=== PATIENT | female | born 1990 | race Caucasian/White ===

== ENCOUNTER 2017-08-02 05:45 | Inpatient (IN) ==
[2017-08-02] MEDS ORDERED: Metoclopramide 10 MG/2 ML VIAL IVP PRN (06:27)
[2017-08-02] MEDS ORDERED: *HR* Nalbuphine 10 MG/ML AMPUL IVP PRN (06:27)
[2017-08-02] MEDS ORDERED: miSOPROStol 25 MCG TABLET VG PRN (06:27)
[2017-08-02] MEDS ORDERED: Famotidine 20 MG/2 ML VIAL IVP PRN (06:27)
[2017-08-02] MEDS ORDERED: Naloxone 0.4 MG/ML INJ IVP PRN (06:27)
[2017-08-02] MEDS ORDERED: *HR* Ropivacaine/PF 0.2% 20 ML VIAL EP ONE (06:33)
[2017-08-02] MEDS ORDERED: Bupivacaine-MPF 0.25% 10 ML VIAL EP ONE (06:33)
[2017-08-02] MEDS ORDERED: Ondansetron 4 MG/2 ML VIAL IVP PRN (06:33)
[2017-08-02] MEDS ORDERED: *HR* FentaNYL (PF) 100 MCG/2 ML VIAL EP ONE (06:33)
[2017-08-02] MEDS ORDERED: EPHEDrine 50 MG/ML VIAL IVP PRN (06:33)
[2017-08-02] MEDS ORDERED: Penicillin G Potassium 5,000,000 UNIT in 0.9 % Sodium Chloride Mini Bag 100 ML IVPB ONE (06:41)
[2017-08-02] MEDS ORDERED: Epidural Premix (fent/bupiv) 110 ML EP SCH (06:45)
--- NOTE | 2017-08-02 06:49 | Anesthesia Evaluation PreOp ---
Date of Encounter: 08/02/17 Time of Encounter: 06:44 - Past History Planned Operation: vaginal del, G1 induction Cardiac History: Arrhythmia (hx of bigeminy, ablation in [id number].) Pulmonary History: Denies Any Significant HX DATA MANAGEMENT ASSOCIATE History: Denies Any Significant HX Other Medical History: Denies Any Significant HX Anesthesia History: No Prior Anesthetic Complications, Past Anesthesia Alcohol Use: none Drug use: none Medications and Allergies Tablet 08/02/17 [History] 3 Allergy/AdvReac Type Severity Reaction Status Date / Time No Known Allergies Allergy Verified 08/02/17 06:22 Anesthesia Exam - HEENT Pupil (Motor): Pupils equal Mallampati: II Teeth: Normal Oral Opening: Greater than 3 - DATA MANAGEMENT ASSOCIATE LOC: Oriented DATA MANAGEMENT ASSOCIATE Motor: Normal RUE, Normal LUE, Normal RLE, Normal LLE, Normal Face DATA MANAGEMENT ASSOCIATE Sensory: Normal: RUE, LUE, RLE, LLE, Face - Cardiac Rhythm: Regular Murmur: None - Pulmonary Breath Sounds: bilateral Clear Respiratory Effort: Symmetrical Anesthesia Assess/Plan ASA Score: 2 Modified Jayjay Scale for Level of Consciousness: Cooperative, oriented, and tranquil Anesthetic Plan: General, Regional Monitoring Plan: Standard Monitors Recovery Plan: PACU
[2017-08-02] MEDS: Ringers Solution, Lactated 1,000 ML IVC SCH ×2 (07:00→16:39)
[2017-08-02 07:05] LABS: Basophils % 0.4 %; Eosinophils # 0.1 K/mcL (0.0-0.6); Eosinophils % 0.9 %; Hematocrit 38.5 % (35.3-44.9); Hemoglobin 13.2 g/dL (11.5-15.4); Immature Granulocytes % 0.9 % (0-4); Lymphocytes # 1.6 K/mcL (0.6-4.6); Lymphocytes % 17.4 %; Mean Corpuscular HGB Conc 34.3 g/dL (31.6-35.5); Mean Corpuscular Hemoglobin 31.8 pg (28.0-33.3); Mean Corpuscular Volume 92.8 fL (83.0-100.0); Mean Platelet Volume 10.2 fL (9.4-12.4); Monocytes # 0.6 K/mcL (0.0-1.3); Monocytes % 6.2 %; Neutrophils # 6.7 K/mcL (1.6-8.9); Platelet Count 178 K/mcL (140-400); Red Blood Count 4.15 M/mcL (3.82-4.97); Red Cell Distribution Width 15.3 % (11.5-14.5); Segmented Neutrophils % 74.2 %
[2017-08-02 07:15] LABS: Amphetamine Screen,Urine Negative ng/mL (Cutoff=1000); Barbiturate Screen,Urine Negative ng/mL (Cutoff=200); Benzodiazepines Screen,Urine Negative ng/mL (Cutoff=200); Cannabinoid Screen,Urine Negative ng/mL (Cutoff = 50); Cocaine Screen,Urine Negative ng/mL (Cutoff= 300); Opiate Screen,Urine Negative ng/mL (Cutoff=300); Phencyclidine Screen,Urine Negative ng/mL (Cutoff=25)
--- NOTE | 2017-08-02 07:22 | OB/GYN History & Physical ---
Date of Encounter: 08/02/17 Time of Encounter: 07:20 Assessment and Plan (1) 40 weeks gestation of Current visit: Yes Status: Acute admitted for IOL History of Present Illness Chief complaint: Scheduled IOL at 40 weeks gestation HPI: Ms. Tafoya is a 27 year old female @ 40 weeks gestation presents to labor and delivery for induction of labor. Patient reports contractions started at home around 0500. Patient denies LOF or VB. Patient reports +FM. Blood type: A+ Rubella:Immune Hep B: Nonreactive GBS: Positive per Urine culture early in Past Med Surg Social Fam HX - Past Medical History Source: patient Medical history: SVT (cardiac ablation), other Psychiatric history: no psych history - Social History Smoking Status: Never smoker Smokeless Tobacco Status: No Alcohol use: none Drug use: none Occupational status: employed Current living situation: Home - Independent Activity Level: Independent ambulation Recent Out of Country Travel Within the Last 8 Weeks: No Exposure or Possible Exposure to Illness During Travel: No - Family History Father Living Status: Still Living Hx Family Cardiac Disorders: Yes (HTN, high cholesterol) Obstetrical History - Pregnancies : 1 Para: 0 Term: 0 : 0 Ab's: 0 Livin Medications and Allergies Tablet 08/02/17 [History] 3 Allergy/AdvReac Type Severity Reaction Status Date / Time No Known Allergies Allergy Verified 08/02/17 06:22 Review of System OB - Constitutional Constitutional ROS IM: no chills, no fever(s), no headache(s) - Cardiovascular Cardiovascular: no chest pain, no edema, no palpitations, no syncope - Respiratory Respiratory: no cough - Gastrointestinal Gastrointestinal: no abdominal pain, no constipation, no diarrhea, no heartburn , no nausea, no vomiting - Genitourinary Genitourinary: no abnormal vaginal bleeding, no dysuria, no flank pain, no urinary urgency, no vaginal discharge, no vaginal odor Exam - Constitutional Constitutional: well developed, well nourished, no acute distress, average body habitus - HEENT HEENT: Normocephaly, Mucus Membranes Moist - Neck Neck exam: full ROM, supple - Lungs Respiratory exam: CTAB - Cardiovascular Cardiovascular exam: RRR, +S1, +S2 - Breasts Breast: bilateral: normal - Abdomen Abdomen: Present: bowel sounds normal, gravid, non tender - Extremities Deep Tendon Reflex Grade: 2+ Normal - Cervix Dilation: 1 Effacement: 80 Station: -1 - Uterus Uterus exam: Present: normal size, normal contour - Anus/Rectum Anus/Rectum: Present: normal perianal skin - Comments Comments: FHR 125 bpm moderate amount of variabiity +15x15 accels no decels noted. Cat. 1 tracing. Contraction are irregular. Results Result Diagrams: 08/02/17 06:30 08/02/17 06:00 Abnormal lab results RDW 15.3 % (11.5-14.5) H 08/02/17 06:30 All other labs normal. - VTE Reasons for not Prescribing Prophylaxis: Treatment not Indicated - Low risk for VTE
[2017-08-02 07:49] LABS: Alanine Aminotransferase 22 Units/L (7-52); Aspartate Amino Transferase 20 Units/L (13-39); BUN/Creatinine Ratio 14 (6-26); Blood Urea Nitrogen 8 mg/dL (6-20); Lactate Dehydrogenase 143 Units/L (140-271); Uric Acid 4.7 mg/dL (2.3-7.6); eGFR For African Americans > 60 (> 60); eGFR For Non-African Americans > 60 (> 60)
[2017-08-02] MEDS ORDERED: Penicillin G Potassium 2,500,000 UNIT in 0.9 % Sodium Chloride 100 ML IVPB SCH (08:00)
--- NOTE | 2017-08-02 11:17 | OB Labor Progress Note ---
Date of Encounter: 08/02/17 Time of Encounter: 11:15 Labor Progress Note - Subjective Subjective: Patient resting comfortably. Discussed POC with patient. Patient denies any questions or concerns. - Cervix Cervix: 1/80/-1 - Heart Tones Heart Tones: 135 bpm moderate amount of variability +15x15 accels no decels noted. Cat. 1 tracing - [place]: 2-3 min apart - Interventions Interventions: SVE, darnell catheter placed for IOL. 40 cc sterile water placed in darnell balloon. - Plan Plan: Continue labor management.
[2017-08-02] MEDS ORDERED: Penicillin G Potassium 2,500,000 UNIT in D5% in Water 100 ML IVPB SCH (11:45)
[2017-08-02] MEDS: Penicillin G Potassium 2,500,000 UNIT in 0.9 % Sodium Chloride 100 ML IVPB SCH ×3 (12:05→20:45)
[2017-08-02] MEDS ORDERED: Methylergonovine 0.2 MG/ML AMPUL IM ONE (12:20)
[2017-08-02] MEDS ORDERED: miSOPROStol 100 MCG TABLET PO ONE (12:20)
--- NOTE | 2017-08-02 13:20 | Event Note ---
Date of Encounter: 08/02/17 Time of Encounter: 13:18 Gentle tug to darnell. Darnell taped to patient's leg. Patient denies any needs at this time. Will start Pitocin.
[2017-08-02] MEDS ORDERED: Oxytocin 20 units/ LR 1000 mL 20 UNIT/1,000 ML BAG IVC SCH (13:30)
--- NOTE | 2017-08-02 18:51 | OB Labor Progress Note ---
Date of Encounter: 08/02/17 Time of Encounter: 18:49 Labor Progress Note - Subjective Subjective: Patient sitting up in bed. Discussed POC with patient. Patient denies any questions or concerns. - Cervix Cervix: 4.5/80/-1 - Heart Tones Heart Tones: 125 bpm moderate variability +15x15 accels no decels noted. Cat. 1 tracing - [place]: 2-3 min apart - Interventions Interventions: SVE, AROM moderate amount of clear fluid. IUPC placed without difficulty. Patient tolerated well. - Plan Plan: Continue labor management Patient may have nubain or epidural for pain management if desires
--- NOTE | 2017-08-02 21:31 | OB Labor Progress Note ---
Date of Encounter: 08/02/17 Time of Encounter: 21:29 Labor Progress Note - Subjective Subjective: Patient doing well. Denies any needs at this time. Pitocin at 14 milliunits - Cervix Cervix: 4.5/90/-1 - Heart Tones Heart Tones: 130 bpm moderate variability +15x15 accels no decels noted. Cat. 1 tracing - [place]: 2-2.5 min apart - Interventions Interventions: SVE, repositioned with peanut ball - Plan Plan: Continue labor management.
[2017-08-03] MEDS ORDERED: Epidural Premix (fent/bupiv) 110 ML EP ONE ×3 (00:44→14:01)
--- NOTE | 2017-08-03 01:09 | Anesthesia Procedures ---
Date of Encounter: 08/03/17 Time of Encounter: 01:07 Procedures: Anesthesia - Epidural/Spinal Patient ID/Chart reviewed: Yes Patient examined: Yes OB Eval: Gestational age: term OB Eval: : 1 OB Eval: Hx Para: 0 OB Eval: Dilated at (cm): 5 OB Eval: Contractions: Non-stressed pattern Consent Obtained: Yes Supplemental Oxygen: None/Room Air Site Prep: Aseptic Technique, Sterile prep and drape, Povidone-Iodine 1% Patient position: upright Local Anesthetic: Lidocaine 1% Amount of Local Anesthetic used: 3 Touhy Needle Gauge: 18 Touhy Needle Depth (cm): 9 Catheter Depth at Skin (cm): 20 Test Dose (1.5% Lido + Epi): Volume given (mls): 5 Test Dose Result: Negative Loading Dose: Other: 10mls of epidural pharm bag premix solution Loading Dose Administered: Thru Catheter Infusion Med: 0.125% Bupivacaine w/ 2 mcg/ml Fentanyl Infusion Rate (mls/hr): 14 ([id number]) Catheter Secured in Place: Tegaderm, Tape Interspace Used: L3-L4 Loss of Resistance (DYLAN): Yes Blood: No CSF: No Paresthesia: No Procedure: pt tolerated procedure well. no complications. vss. fhr stable. see nursing notes for full vitals.
[2017-08-03] MEDS: Penicillin G Potassium 2,500,000 UNIT in 0.9 % Sodium Chloride 100 ML IVPB SCH ×5 (01:19→17:13)
--- NOTE | 2017-08-03 06:53 | OB Labor Progress Note ---
Date of Encounter: 08/03/17 Time of Encounter: 06:50 Labor Progress Note - Subjective Subjective: Patient comfortable with epidural in placed. Discussed POC with no cervical change. Pitocin had been turned off during the night and restarted and is currently at 6 milliunits. At this time patient would like to continue with labor management. - Cervix Cervix: 4.5/90/-1 - Heart Tones Heart Tones: 125 bpm moderate variability +15x15 accels no decels noted. Cat. 1 tracing. - [place]: 3-7 min apart - Interventions Interventions: SVE, repositioned - Plan Plan: Continue labor management
--- NOTE | 2017-08-03 09:53 | OB Labor Progress Note ---
Date of Encounter: 08/03/17 Time of Encounter: 09:51 Labor Progress Note - Subjective Subjective: Pt comfortable with epidural. - Heart Tones Heart Tones: Category I - [place]: 2-3 minutes - Interventions Interventions: Pt repositioned to right lateral with peanut ball. IUPC pulled out to 45mm due to contractions not tracing well. - Plan Plan: Continue to monitor and titrate pitocin. Will replace IUPC if continued poor tracing. Anticipate .
--- NOTE | 2017-08-03 16:58 | OB Labor Progress Note ---
Date of Encounter: 08/03/17 Time of Encounter: 16:58 Labor Progress Note - Subjective Subjective: Pt comfortable with epidural. - Cervix Cervix: 4-5/100/0 - Heart Tones Heart Tones: Category I - [place]: 2-2.5 minutes - Plan Plan: SVE at 1254 this afternoon was 4-5/100/0 repeat now is unchanged. Pt has been repositioned several times to multiple positions incluiding on the peanut ball and hands and knees position. POC discussed with pt and father of baby. She has not had significant change since early this am and no change for over 4 hours. There is also a significant amount of caput. At this time I have recommended a delivery for failure to progress. Pt and s/o in agreement. Dr. Vega notified.
[2017-08-03] MEDS ORDERED: CeFAZolin Premix DUPLEX 2,000 MG/50 ML BAG IVPB ONE (17:05)
[2017-08-03] MEDS ORDERED: MetroNIDAZOLE 500 MG/100 ML 500 MG/100 ML BAG IVPB ONE ×2 (17:06→17:33)
[2017-08-03] MEDS ORDERED: *HR* PHENYLEPHRINE 1,000 MCG/10 ML SYRINGE IVP ONE (17:19)
[2017-08-03] MEDS ORDERED: cefOXitin 2,000 MG in Water for inj. (sterile) 10 ML IVP ONE (17:33)
--- NOTE | 2017-08-03 17:33 | OB/GYN Progress Note ---
Date of Encounter: 08/03/17 Time of Encounter: 17:31 - Assessment and Plan (1) Failure to progress in labor Current Visit: Yes Status: Acute Patient has been consented for a primary section. Antibiotics for prophylaxis have been ordered (2) 40 weeks gestation of Current Visit: Yes Status: Acute CNM patient with induction of labor, failure to progress, arrest at 5 cm Subjective - Subjective Principal diagnosis: 40w1d IOL Interval history: The patient has been an induction of labor by CNM's. She has had arrest of dilatation with failure to progress at 5 cm with adequate contractions on Pitocin with IUPC. The patient is being evaluated for a primary for abdominal delivery of the fetus. Antepartum ROS: other Objective - Vital Signs Vital Signs: Intake and Output 08/03/17 08/03/17 08/03/17 07:59 15:59 23:59 Intake Total 200 / 200 200 / 200 Output Total 950 / 950 Balance 200 / 200 -750 / -750 Intake: IV Fluids 200 / 200 200 / 200 Pfizerpen 2,500,000 UNIT In 0.9 200 / 200 200 / 200 % Sodium Chloride 100 ML @ 100 mls/hr IVPB Q4HR [facility] Rx#: [id number] Output: Catheter 950 / 950 - Exam FHR: category 1 Abdomen: Present: soft, gravid Cervical dilation: 5 cm with caput per RN - Labs Labs: Abnormal lab results RDW 15.3 % (11.5-14.5) H 08/02/17 06:30 Creatinine 0.59 mg/dL (0.60-1.20) L 08/02/17 06:00
[2017-08-03] MEDS ORDERED: cefOXitin 2,000 MG in D5% in Water (Mini-Bag+) 100 ML IVPB ONE (17:37)
[2017-08-03] MEDS ORDERED: *HR* Oxytocin 10 UNIT/ML VIAL IM ONE (18:10)
[2017-08-03] MEDS ORDERED: Morphine Sulfate/PF 5mg/10mL Vial ONE (18:11)
[2017-08-03] MEDS ORDERED: Chloroprocaine/PF 20 ML VIAL INFILT ONE (18:11)
[2017-08-03] MEDS ORDERED: cefOXitin 2,000 MG in 0.9 % Sodium Chloride Mini Bag 100 ML IVP ONE (19:00)
[2017-08-03] MEDS ORDERED: *HR* OxyCODONE Immed Rel 5 MG TABLET PO PRN (19:15)
[2017-08-03] MEDS ORDERED: Acetaminophen IV 1,000 MG/100 ML INFUS..BTL IVPB ONE ×2 (19:15→21:30)
--- NOTE | 2017-08-03 19:38 | OB/GYN Procedure Note ---
Section - Date of procedure: 08/03/17 Preop diagnosis: arrest of dilation (5cm) Post-op diagnosis: same Procedure: section, primary low transverse Surgeon: Elayne Vega Estimated blood loss (cc): 400 Was there an school office assistant present: No Chief Deputy: Alex Nam Anesthesia Type: Epidural section complications: uterine atony (Patient given intraoperative Methergine and oral Cytotec 400mcgs) Disposition: L&D Recovery Room Specimens: Placenta, Cord segment - (s) A Infant Delivery Date: 08/03/17 Delivery Time: 18:51 Presentation: vertex Position: LOT Route of delivery: other Gender: Female Viability: Viable Pounds: 8 Ounces: 7 at 1 minute: 8 at 5 minutes: 9 Placenta: spontaneous, uterine exploration Cord: nuchal cord, 3 umbilical vessels, nuchal reduced - Narrative Narrative: Patient was taken to the operating room and prepped and draped in usual sterile fashion. EPCDs were placed. Timeout was completed. Anesthesia was tested to be adequate. A Pfannenstiel skin incision was made with a scalpel and sharply dissected down to the fascia. The fascia was incised in the midline and extended bilaterally with scissors. 2 straight [place] clamps were placed on the inferior fascial edge and the fascia was bluntly and sharply dissected away from the rectus muscles. This was repeated superiorly. The rectus muscles were then bluntly and sharply bissected in the midline. Peritoneum was bluntlyly entered and extended superiorly and inferiorly. Bladder blade was placed to protect the bladder. Vesicouterine peritoneum was incised and reflected inferiorly. Bladder blade was replaced to protect the bladder. A low transverse incision was then made with a scalpel and sharply dissected down to the amnion. This was then bluntly extended bilaterally. The amnion was then bluntly entered. This was followed by the vertex delivery of a vigorous female weighing 8#7oz, with Apgars of 8 at 1 minute and 9 at 5 minutes. The was suctioned on the operating field, cord was clamped and cut after a delay, and the infant was handed to the nursery care team. Placenta was spontaneously extracted intact. Uterine cavity was digitally inspected and then wiped clean with a moist lap sponge. Clamps were placed on the uterine angles and the uterine incision was closed using 0 Vicryl suture in a running locking fashion. A second imbricating layer completed the uterine closure. Good hemostasis was achieved. Gloves were changed. Tubes and ovaries were inspected and found to be grossly normal. The abdomen was irrigated copiously with sterile water. Peritoneal edges and rectus muscles were inspected and hemostasis achieved. The fascia was then closed using an 0 PDS loop in a running, nonlocking fashion. Subcutaneous tissue was irrigated with sterile water and good hemostasis was achieved. She is layer was closed with 3-0 Monocryl in a running nonlocking fashion. Skin was closed with 4-0 Monocryl in a subcuticular fashion. Dermabond was applied for skin closure. All sponge and instrument counts were correct at the end of the procedure. [place] was noted to be draining dark yellow urine at the end of the procedure. The patient was taken to the recovery room in stable condition.
[2017-08-03] MEDS ORDERED: Oxytocin 20 units/ LR 1000 mL 20 UNIT/1,000 ML BAG IVC SCH (20:05)
[2017-08-03] MEDS ORDERED: Simethicone 80 MG TAB.CHEW PO PRN (20:05)
[2017-08-03] MEDS ORDERED: Sennosides 8.6 MG TABLET PO PRN (20:05)
[2017-08-03] MEDS ORDERED: Metoclopramide 10 MG/2 ML VIAL IVP PRN (20:05)
[2017-08-03] MEDS ORDERED: Ondansetron 4 MG/2 ML VIAL IVP PRN (20:05)
--- NOTE | 2017-08-03 21:51 | Anesthesia Evaluation Post Op ---
Date of Encounter: 08/03/17 Time of Encounter: 21:48 - Vital Signs Vital Signs: see nsg note, VSS - Lungs Lungs: Clear Ascult./Percussion - Airway Airway: Non-obstructed - Cardiovascular Regular Rate - Mental Status Mental Status: Alert & Oriented, Answers Appropriately - Pain Pain Scale: 2 Pain Scale used: Numeric (1 - 10) - Nausea Vomiting Nausea Vomiting: Not Present - Hydration Hydration: NPO Notes: 08/03/17 21:49 VSS - Discharge PostOp Status: Transfer Patient to floor
[2017-08-04] MEDS: Nystatin Cream 15 GM TUBE TP SCH ×4 (04:03→21:59)
[2017-08-04] MEDS: miSOPROStol 100 MCG TABLET PO SCH ×3 (04:03→21:58)
[2017-08-04] MEDS: Ibuprofen 600 MG TABLET PO PRN ×4 (04:03→23:13)
[2017-08-04 04:46] LABS: Basophils % 0.2 %; Eosinophils % 0.2 %; Hematocrit 34.6 % (35.3-44.9); Immature Granulocytes % 0.5 % (0-4); Lymphocytes # 1.1 K/mcL (0.6-4.6); Lymphocytes % 8.8 %; Mean Corpuscular HGB Conc 34.7 g/dL (31.6-35.5); Mean Corpuscular Hemoglobin 31.8 pg (28.0-33.3); Mean Corpuscular Volume 91.8 fL (83.0-100.0); Mean Platelet Volume 9.8 fL (9.4-12.4); Monocytes # 0.7 K/mcL (0.0-1.3); Monocytes % 5.4 %; Neutrophils # 10.6 K/mcL (1.6-8.9); Nucleated Red Blood Cells 0.2 /100 WBC (0); Platelet Count 160 K/mcL (140-400); Red Blood Count 3.77 M/mcL (3.82-4.97); Red Cell Distribution Width 15.1 % (11.5-14.5); Segmented Neutrophils % 84.9 %
[2017-08-04 04:58] LABS: Alanine Aminotransferase 24 Units/L (7-52); Aspartate Amino Transferase 31 Units/L (13-39); BUN/Creatinine Ratio 14 (6-26); Blood Urea Nitrogen 6 mg/dL (6-20); Lactate Dehydrogenase 166 Units/L (140-271); Uric Acid 3.8 mg/dL (2.3-7.6); eGFR For African Americans > 60 (> 60); eGFR For Non-African Americans > 60 (> 60)
[2017-08-04] MEDS: Prenatal Vit/FA 1 EACH TABLET PO SCH (08:52)
[2017-08-04] MEDS: cephALEXin 500 MG CAPSULE PO SCH ×2 (08:54→21:58)
[2017-08-04] MEDS: Azithromycin 250 MG TABLET PO SCH (08:54)
[2017-08-04] MEDS: *HR* OxyCODONE/APAP 5/325 TABLET PO PRN ×4 (09:06→23:13)
--- NOTE | 2017-08-04 09:08 | OB/GYN Progress Note ---
Date of Encounter: 08/04/17 Time of Encounter: 09:06 - Assessment and Plan (1) Status post section Current Visit: Yes Status: Acute POD #1 Continue routine PP care consult Anticipate d/c to home tomorrow (2) Breast feeding status of mother Current Visit: Yes Status: Acute consult Subjective - Subjective Principal diagnosis: s/p PLTCS Interval history: Feeling well overall - having some increased pain this morning - encouraged to take PO pain meds. Up to side of bed without dizziness Cramping minimal to moderate every 2-3 hours Some nipple soreness Voiding without difficulty Passing flatus, but no BM yet Tolerating regular diet Patient reports: appetite normal, voiding normally, pain well controlled : doing well, nursing well Objective - Vital Signs Latest vital signs: Vital Signs Temp Pulse Resp BP Pulse Ox 08/04/17 07:42 97.6 F 73 16 120/73 08/04/17 01:02 98.5 F 74 14 114/75 97 08/04/17 00:05 98.3 F 82 16 123/79 97 08/03/17 23:05 98.3 F 72 16 122/78 96 08/03/17 22:35 98.5 F 78 16 125/80 95 08/03/17 22:05 99.3 F 89 18 119/63 95 Intake and Output 08/03/17 08/04/17 08/04/17 23:59 07:59 15:59 Output Total 700 / 700 1000 / 1000 Balance -700 / -700 -1000 / -1000 Output: Catheter 700 / 700 1000 / 1000 - Exam Lungs: bilateral: normal Chest: Normal S1, Normal S2 Extremities: Present: normal. Absent: edema Abdomen: Present: normal appearance, soft Incision: Present: normal, intact, dressed Uterus: Present: normal, firm Fundal Height: 1 (below umbilicus) Comments: Breasts: Nipples intact without erythema; breasts soft, non-tender. - Labs Labs: Laboratory Results - last 24 hr 08/04/17 08/04/17 04:18 04:18 WBC 12.4 H RBC 3.77 L Hgb 12.0 Hct 34.6 L MCV 91.8 MCH 31.8 MCHC 34.7 RDW 15.1 H Plt Count 160 MPV 9.8 Immature Gran % 0.5 Seg Neutrophils % 84.9 Lymphocytes % 8.8 Monocytes % 5.4 Eosinophils % 0.2 Basophils % 0.2 Neutrophils # 10.6 H Lymphocytes # 1.1 Monocytes # 0.7 Eosinophils # 0.0 Basophils # 0.0 Nucleated RBCs/100 WBC 0.2 H BUN 6 Creatinine 0.43 L Est GFR ( Amer) > 60 Est GFR (Non-Af Amer) > 60 BUN/Creatinine Ratio 14 Uric Acid 3.8 AST 31 ALT 24 Lactate Dehydrogenase 166
[2017-08-05] MEDS: *HR* OxyCODONE/APAP 5/325 TABLET PO PRN ×3 (04:26→13:07)
[2017-08-05] MEDS ORDERED: MOM Conc 10 ML UD.LIQ PO ONE (08:00)
[2017-08-05 08:03] VITALS: BP 128/80
[2017-08-05] MEDS: Ibuprofen 600 MG TABLET PO PRN (08:56)
[2017-08-05] MEDS: Azithromycin 250 MG TABLET PO SCH (08:57)
[2017-08-05] MEDS: cephALEXin 500 MG CAPSULE PO SCH (08:57)
[2017-08-05] MEDS: Prenatal Vit/FA 1 EACH TABLET PO SCH (08:59)
[2017-08-05] MEDS: Nystatin Cream 15 GM TUBE TP SCH (09:00)
[2017-08-05] MEDS: miSOPROStol 100 MCG TABLET PO SCH (09:00)
--- NOTE | 2017-08-05 11:38 | Discharge Summary ---
Date of Encounter: 08/05/17 Time of Encounter: 11:35 - Discharge Diagnosis (1) Breast feeding status of mother Priority: Secondary Status: Acute (2) Status post section Priority: Primary Status: Acute Comments: Stable in PP. Meeting all milestones, , tolerates regular diet, desires discharge. - Discharge Medications Prescriptions: OxyCODONE/APAP 5/325 [Percocet 5/325 MG] 1 each PO Q4HR PRN 7 Days #20 tablet PRN Reason: Moderate pain 4-6 Ibuprofen [Motrin] 600 mg PO Q6HR PRN #60 tablet PRN Reason: Cramping Azithromycin [Zithromax] 500 mg PO DAILY #5 tablet Breast Pump [BREAST PUMP] 1 each .ROUTE AD #1 each cephALEXin [Keflex] 1,000 mg PO BID #10 capsule Docusate [Colace] 100 mg PO BID #60 capsule Home Medications: Tablet 08/02/17 [History] Breast Pump [BREAST PUMP] 1 each .ROUTE AD #1 each 08/04/17 [Rx] Azithromycin [Zithromax] 500 mg PO DAILY #5 tablet 08/05/17 [Rx] Docusate [Colace] 100 mg PO BID #60 capsule 08/05/17 [Rx] Ibuprofen [Motrin] 600 mg PO Q6HR PRN #60 tablet 08/05/17 [Rx] Nystatin Cream [Mycostatin Cream] 1 appl TP TID tube 08/05/17 [Rx] OxyCODONE/APAP 5/325 [Percocet 5/325 MG] 1 each PO Q4HR PRN 7 Days #20 tablet [Rx] Vit/FA 1 each PO DAILY tablet 08/05/17 [Rx] cephALEXin [Keflex] 1,000 mg PO BID #10 capsule 08/05/17 [Rx] Allergies/Adverse Reactions: 3 Allergy/AdvReac Type Severity Reaction Status Date / Time No Known Allergies Allergy Verified 08/02/17 06:22 Data Procedures and tests throughout hospitalization: Laboratory Tests 08/02/17 08/02/17 08/02/17 06:00 06:00 06:30 WBC 9.1 RBC 4.15 Hgb 13.2 Hct 38.5 MCV 92.8 MCH 31.8 MCHC 34.3 RDW 15.3 H Plt Count 178 MPV 10.2 Immature Gran % 0.9 Seg Neutrophils % 74.2 Lymphocytes % 17.4 Monocytes % 6.2 Eosinophils % 0.9 Basophils % 0.4 Neutrophils # 6.7 Lymphocytes # 1.6 Monocytes # 0.6 Eosinophils # 0.1 Basophils # 0.0 Nucleated RBCs/100 WBC BUN 8 Creatinine 0.59 L Est GFR ( Amer) > 60 Est GFR (Non-Af Amer) > 60 BUN/Creatinine Ratio 14 Uric Acid 4.7 AST 20 ALT 22 Lactate Dehydrogenase 143 Urine Opiates Screen Negative Ur Barbiturates Screen Negative Ur Phencyclidine Scrn Negative Ur Amphetamines Screen Negative U Benzodiazepines Scrn Negative Urine Cocaine Screen Negative U Marijuana (THC) Screen Negative 08/04/17 08/04/17 04:18 04:18 WBC 12.4 H RBC 3.77 L Hgb 12.0 Hct 34.6 L MCV 91.8 MCH 31.8 MCHC 34.7 RDW 15.1 H Plt Count 160 MPV 9.8 Immature Gran % 0.5 Seg Neutrophils % 84.9 Lymphocytes % 8.8 Monocytes % 5.4 Eosinophils % 0.2 Basophils % 0.2 Neutrophils # 10.6 H Lymphocytes # 1.1 Monocytes # 0.7 Eosinophils # 0.0 Basophils # 0.0 Nucleated RBCs/100 WBC 0.2 H BUN 6 Creatinine 0.43 L Est GFR ( Amer) > 60 Est GFR (Non-Af Amer) > 60 BUN/Creatinine Ratio 14 Uric Acid 3.8 AST 31 ALT 24 Lactate Dehydrogenase 166 Urine Opiates Screen Ur Barbiturates Screen Ur Phencyclidine Scrn Ur Amphetamines Screen U Benzodiazepines Scrn Urine Cocaine Screen U Marijuana (THC) Screen Date of admission: 08/02/17 05:45 Primary care physician: Darshan Best, Discharging clinician: Homa Tripathi Anticipated date of discharge: 08/05/17 - Patient Status Disposition: Home, Self-Care Condition: Good Functional capacity at discharge: independent ambulation Overall status at discharge: patient is back to baseline - Discharge Instructions Follow Up With: Darshan Best, [Primary Care Provider] - Saima Covington CNM [Non-Partnered Physician] - - Diet and Activity Activity: increase activity as tolerated Diet: regular diet Hospital Course Reason for admission: induction of labor, IUP at term Delivery: section Episiotomy: none Laceration: none complications: none Discharge diagnosis: IUP at term delivered [place] baby: female Hospital course: Section - Date of procedure: 08/03/17 Preop diagnosis: arrest of dilation (5cm) Post-op diagnosis: same Procedure: section, primary low transverse Surgeon: Elayne Vega Estimated blood loss (cc): 400 Was there an museum assistant present: No After School Coordinator: Alex Nam Anesthesia Type: Epidural section complications: uterine atony (Patient given intraoperative Methergine and oral Cytotec 400mcgs) Disposition: L&D Recovery Room Specimens: Placenta, Cord segment - Infant (s) Infant A Infant Delivery Date: 08/03/17 Delivery Time: 18:51 Presentation: vertex Position: LOT Route of delivery: other Gender: Female Viability: Viable Pounds: 8 Ounces: 7 at 1 minute: 8 at 5 minutes: 9 Placenta: spontaneous, uterine exploration Cord: nuchal cord, 3 umbilical vessels, nuchal reduced Stable in PP and appropriate for discharge. OAARS reviewed. Time Attestation: Total time spent providing and/or coordinating discharge services: - VTE Reasons for not Prescribing Prophylaxis: Treatment not Indicated - Low risk for VTE Documentation of Mechanical Device: Intermittent pneumatic compression device Exam - Constitutional Vitals: Temp Pulse Resp BP Pulse Ox 97.5 F L 83 16 128/80 97 08/05/17 08:01 08/05/17 08:01 08/05/17 08:01 08/05/17 08:01 08/04/17 21:30 General appearance IM: A&O X 3 - Respiratory Respiratory exam: Present: CTAB - Cardiovascular Cardiovascular exam IM: Present: RRR - GI/Abdominal GI/Abdominal exam IM: soft Incision: normal, intact - Uterine Tone: Firm Uterus Position: At Umbilicus - Extremities Exam Extremities exam IM: Present: normal capillary refill, normal inspection - Neurological Exam Neurological exam: normal gait - Psychiatric Additional comments: reports good mood.
== END 2017-08-05 13:47 | disposition home or self-care (01) | DRG 766 ==
LOC: 1NENULAB 05:45 → 1NENUOBS 08-03 23:45
PROVIDERS: ADMIT Advanced Practice Midwife; ATTEND Advanced Practice Midwife

== ENCOUNTER → 2020-07-28 11:00 | Observation (INO) ==
[2020-07-27] MEDS: Ondansetron 4 MG/2 ML VIAL IVP PRN ×2 (14:05→23:08)
[2020-07-27 14:35] LABS: Bacteria,Urine Few per hpf (None-Few); Bilirubin,Urine Negative (Negative); Blood,Urine Negative (Negative); Clarity,Urine Clear (Clear); Color,Urine Yellow (Yellow); Glucose,Urine (UA) Normal (Normal); Ketones,Urine 20 mg/dL (Negative); Leukocyte Esterase,Urine Negative (Negative); Mucus,Urine Few per lpf (None-Few); Nitrite,Urine Negative (Negative); Protein,Urine 30 mg/dL (Neg-Trace); RBC,Urine 0-3 per hpf (0-3); Specific Gravity,Urine > 1.030 (1.010-1.025); Squamous Epithelial Cell,Urine Moderate per hpf (None-Few); Urobilinogen,Urine Normal (Normal); WBC,Urine 0-3 per hpf (0-3)
[2020-07-27 14:36] LABS: Basophils % 0.1 %; Eosinophils % 0.1 %; Hematocrit 43.3 % (35.3-44.9); Hemoglobin 14.7 g/dL (11.5-15.4); Immature Granulocytes % 0.3 % (0-4); Lymphocytes # 0.3 K/mcL (0.6-4.6); Lymphocytes % 4.5 %; Mean Corpuscular HGB Conc 33.9 g/dL (31.6-35.5); Mean Corpuscular Hemoglobin 29.8 pg (28.0-33.3); Mean Corpuscular Volume 87.7 fL (83.0-100.0); Mean Platelet Volume 9.6 fL (9.4-12.4); Monocytes # 0.2 K/mcL (0.0-1.3); Monocytes % 3.4 %; Neutrophils # 6.5 K/mcL (1.6-8.9); Platelet Count 166 K/mcL (140-400); Red Blood Count 4.94 M/mcL (3.82-4.97); Segmented Neutrophils % 91.6 %; White Blood Count 7.1 K/mcL (4.3-11.1)
[2020-07-27 14:47] LABS: Potassium 3.4 mEq/L (3.5-5.1)
[2020-07-28] MEDS: Ondansetron 4 MG/2 ML VIAL IVP PRN (07:26)
[2020-07-28 08:28] VITALS: BP 98/57
[~2020-07-28 11:00] MED LIST: D5% in Lactated Ringers 1,000 ML IVC SCH; Pyridoxine (B-6) 50 MG in Ringers Solution, Lactated 1,000 ML IVPB SCH; Ringers Solution, Lactated 1,000 ML IVC SCH
== END | disposition home or self-care (01) ==
LOC: 1NENUOBS
PROVIDERS: ADMIT Advanced Practice Midwife; ATTEND Advanced Practice Midwife

== ENCOUNTER 2021-02-28 06:01 | Inpatient (IN) ==
[2021-02-28] MEDS ORDERED: Naloxone 0.4 MG/ML INJ IVP PRN (06:02)
[2021-02-28] MEDS ORDERED: *HR* Nalbuphine 10 MG/ML AMPUL IV PRN (06:02)
[2021-02-28] MEDS ORDERED: Metoclopramide 10 MG/2 ML VIAL IVP PRN (06:02)
[2021-02-28] MEDS ORDERED: Famotidine 20 MG/2 ML VIAL IVP PRN (06:02)
[2021-02-28] MEDS ORDERED: Penicillin G Potassium 5,000,000 UNIT in 0.9 % Sodium Chloride Mini Bag 100 ML IVPB ONE (06:30)
[2021-02-28] MEDS ORDERED: Oxytocin 20 units/ LR 1000 mL 20 UNIT/1,000 ML BAG IVC ONE (06:49)
[2021-02-28 06:56] LABS: Basophils % 0.2 %; Eosinophils % 0.5 %; Hematocrit 41.4 % (35.3-44.9); Hemoglobin 14.1 g/dL (11.5-15.4); Immature Granulocytes % 0.7 % (0-4); Lymphocytes # 1.5 K/mcL (0.6-4.6); Lymphocytes % 17.5 %; Mean Corpuscular HGB Conc 34.1 g/dL (31.6-35.5); Mean Corpuscular Hemoglobin 31.7 pg (28.0-33.3); Mean Platelet Volume 10.4 fL (9.4-12.4); Monocytes # 0.5 K/mcL (0.0-1.3); Monocytes % 5.8 %; Neutrophils # 6.4 K/mcL (1.6-8.9); Platelet Count 163 K/mcL (140-400); Red Blood Count 4.45 M/mcL (3.82-4.97); Red Cell Distribution Width 14.5 % (11.5-14.5); Segmented Neutrophils % 75.3 %; White Blood Count 8.4 K/mcL (4.3-11.1)
[2021-02-28] MEDS ORDERED: Oxytocin 20 units/ LR 1000 mL 20 UNIT/1,000 ML BAG IVC SCH (07:00)
[2021-02-28 07:21] LABS: Amphetamine Screen,Urine Negative ng/mL (Cutoff=1000); Barbiturate Screen,Urine Negative ng/mL (Cutoff=200)
[2021-02-28 07:22] LABS: Benzodiazepines Screen,Urine Negative ng/mL (Cutoff=300); Cannabinoid Screen,Urine Negative ng/mL (Cutoff = 50); Cocaine Screen,Urine Negative ng/mL (Cutoff= 300); Opiate Screen,Urine Negative ng/mL (Cutoff=300); Phencyclidine Screen,Urine Negative ng/mL (Cutoff=25)
[2021-02-28 07:33] LABS: Influenza A PCR Negative (Negative); Influenza B PCR Negative (Negative); Resp. Syncytial Virus PCR Negative (Negative)
[2021-02-28 07:40] LABS: SARS-CoV-2 by PCR (In House) Negative (Negative)
[2021-02-28] MEDS: Penicillin G Potassium 2,500,000 UNIT/105 ML MLS IVPB SCH ×3 (11:12→20:28)
[2021-02-28] MEDS ORDERED: *HR* FentaNYL (PF) 100 MCG/2 ML VIAL EP ONE (11:46)
[2021-02-28] MEDS ORDERED: EPHEDrine 50 MG/ML VIAL IVP PRN (11:46)
[2021-02-28] MEDS ORDERED: Ropivacaine/PF 0.2% 20 ML VIAL EP ONE (11:46)
[2021-02-28 11:56] LABS: Alanine Aminotransferase 5 Units/L (7-52); Aspartate Amino Transferase 9 Units/L (13-39); BUN/Creatinine Ratio 16 (6-26); Blood Urea Nitrogen 8 mg/dL (6-20); Lactate Dehydrogenase 127 Units/L (140-271); Uric Acid 4.1 mg/dL (2.3-7.6); eGFR For African Americans > 60 (> 60); eGFR For Non-African Americans > 60 (> 60)
[2021-02-28 12:16] LABS: Protein/Creatinine Ratio,Urine 0.14 mg/mg (0.00-0.20)
[2021-02-28] MEDS: Epidural Premix (fent/bupiv) 110 ML EP SCH ×3 (13:13→21:02)
[2021-02-28] MEDS: Ringers Solution, Lactated 1,000 ML IVC SCH ×2 (13:13→14:52)
[2021-02-28] MEDS ORDERED: Ropivacaine/PF 0.2% 20 ML VIAL ONE (22:03)
[2021-02-28] MEDS ORDERED: *HR* FentaNYL (PF) 100 MCG/2 ML VIAL ONE (22:03)
[2021-03-01] MEDS ORDERED: Lidocaine 1% 20 ML MDV ONE (01:04)
[2021-03-01] MEDS ORDERED: Lanolin 7 G OINT...G. TP PRN (02:38)
[2021-03-01] MEDS ORDERED: Oxytocin 20 units/ LR 1000 mL 20 UNIT/1,000 ML BAG IVC SCH (02:38)
[2021-03-01] MEDS ORDERED: Benzocaine/Menthol 56 GM AEROSOL SPRAY TP PRN (02:38)
[2021-03-01] MEDS ORDERED: *HR* OxyCODONE Immed Rel 5 MG TABLET PO PRN (02:38)
[2021-03-01] MEDS ORDERED: Ondansetron ODT 4 MG TAB.RAPDIS SL PRN (02:38)
[2021-03-01] MEDS: Acetaminophen 325 MG TABLET PO SCH ×4 (04:28→20:13)
[2021-03-01] MEDS: Ibuprofen 600 MG TABLET PO SCH ×3 (04:28→15:48)
[2021-03-01] MEDS: Prenatal Vit/FA 1 EACH TABLET PO SCH (07:52)
[2021-03-01 21:48] VITALS: O2SAT 98
[2021-03-02] MEDS: Acetaminophen 325 MG TABLET PO SCH ×2 (01:54→08:13)
[2021-03-02] MEDS: Ibuprofen 600 MG TABLET PO SCH ×2 (01:54→08:13)
[2021-03-02 07:53] VITALS: BP 136/82; PULSE 80; TEMP 97.8
[2021-03-02] MEDS: Prenatal Vit/FA 1 EACH TABLET PO SCH (08:13)
== END 2021-03-02 13:30 | disposition home or self-care (01) | DRG 560 ==
LOC: 1NENULAB 06:01 → 1NENUOBS 03-01 02:38
PROVIDERS: ADMIT Advanced Practice Midwife; ATTEND Advanced Practice Midwife